=== PATIENT | female | born 1985 | race Caucasian/White ===

== ENCOUNTER 2020-02-19 21:43 | Emergency (ER) | payer SELFPAY ==
--- NOTE | ~2020-02-19 | XR_ITS ---
EXAMINATION: XR elbow RT 2V DATE: 02/19/2020 22:19 INDICATION: Right elbow pain. TECHNIQUE: 3 views of right elbow were obtained. COMPARISON: None. FINDINGS: Bone alignment is normal. No fracture. There are suture anchors in distal humerus. There ar e dystrophic calcifications volar to the radial head and neck. There is an elbow joint effusion. IMPRESSION: 1. Elbow joint effusion. Reviewed, dictated and finalized at location A. IMPRESSION: 1. Elbow joint effusion.
[2020-02-19 21:50] VITALS: BP 122/71; PULSE 95; RESP 22; TEMP 37; O2SAT 98
[2020-02-19] MEDS: KETOROLAC (*BKC) 60 MG/2 ML VIAL IM (22:25)
--- NOTE | 2020-02-19 22:26 | PC.NURSE ---
PD here to speak with pt.
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
[2020-02-19 22:41] VITALS: BP 120/79; PULSE 108; RESP 20; O2SAT 98
== END 2020-02-19 22:51 ==
PROVIDERS: Emergency Provider Emergency Medicine
DX: Z98.890 Other specified postprocedural states (principal)
CPT/HCPCS: 73070; 96372; 99283; J1885